=== PATIENT | male | born 1955 | race Two or more races ===

== ENCOUNTER 2024-11-18 09:00 | Day surgery (SDC) | payer MEDICARE, SELFPAY ==
[2024-11-15 14:00] VITALS: BMI 29.6
[2024-11-18] VITALS (10 sets, daily range): BP systolic 120–154; BP diastolic 76–98; PULSE 74–89; RESP 10–20; TEMP 36.2–36.8; O2SAT 93–100; BMI 28.1
[2024-11-18] MEDS: SODIUM CHLORIDE 0.9% 100 ML IV (11:20)
[2024-11-18] MEDS: ONDANSETRON INJ 2 MG/ML INJ 2 ML 4 MG IV (11:26)
[2024-11-18] MEDS: DiphenhydrAMINE INJ 50 MG/ML VIAL 25 MG IV (11:26)
[2024-11-18] MEDS: MIDAZOLAM INJ 1 MG/ML VIAL 2 ML (ASD USE ONLY) 2 MG IV (11:34)
[2024-11-18] MEDS: fentaNYL CIT INJ 50 mCg/ML AMP 2ML (ASD USE ONLY) IV (11:34)
--- NOTE | 2024-11-18 11:45 | SUR.PHASEII ---
1145 patient arrived to recovery, report received from Cyndi AVILES
--- NOTE | 2024-11-18 12:30 | SUR.PHASEII ---
1230 Patient meets discharge criteria from recovery, awake and alert, breathing unlabored, vital signs stable, denies pain, drinking water; denies nausea, patient able to dress himself into his clothing, discharge instructions given to patient and patients , signed discharge instructions. Patient given all his belongings prior to discharge, transported via wheelchair and left in a private vehicle.
== END 2024-11-18 12:30 | disposition home or self-care (01) ==
PROVIDERS: PCP Internal Medicine; Referring Provider Specialist; Visit Provider Specialist
PROC: 0DBE8ZX Excision of Large Intestine, Via Natural or Artificial Opening Endoscopic, Diagnostic (ICD-10-PCS; CPT 45380; principal; 2024-11-18 09:45)
DX: Z12.11 Encounter for screening for malignant neoplasm of colon (principal); K64.9 Unspecified hemorrhoids; K57.30 Diverticulosis of large intestine without perforation or abscess without bleeding; D12.5 Benign neoplasm of sigmoid colon
CPT/HCPCS: 45385; 45380; J1200; J2250; J2405; J3010; J7050

== ENCOUNTER → 2024-11-19 | Outpatient (CLI) | payer MEDICARE, SELFPAY ==
[2024-11-19 12:52] LABS: Basophils # (Auto) 0.1 Thou/mm3 (0.0-0.2); Basophils % (Auto) 1 % (0-2.5); Eosinophils # (Auto) 0.5 Thou/mm3 (0.0-0.5); Eosinophils % (Auto) 6 % (0-10); Hemoglobin 15.1 g/dL (13.5-16.0); Immature Granulocytes % (Auto) 0 % (0-0); Immature Granulocytes Auto 0.03 Thou/mm3 (0.00-0.00); Lymphocytes # (Auto) 2.1 Thou/mm3 (1.0-4.8); Lymphocytes % (Auto) 23 % (10-50); Mean Corpuscular HGB Conc 34.3 g/dl (31.0-37.0); Mean Corpuscular Hemoglobin 27.5 pg (25.0-35.0); Mean Corpuscular Volume 80 fL (80-100); Monocytes # (Auto) 0.8 Thou/mm3 (0.0-0.8); Monocytes % (Auto) 9 % (0-12); Neutrophils # (Auto) 5.5 Thou/mm3 (1.8-7.7); Neutrophils % (Auto) 61 % (37-80); Nucleated Red Blood Cell % 0 /100 WBC (0); Platelet Count 236 Thou/mm3 (140-440); RDW Standard Deviation 38.1 fL (35.1-43.9); White Blood Count 9.1 Thou/mm3 (3.8-10.6)
[2024-11-19 13:06] LABS: Glucose Estimated Average 123 mg/dL (80-131); Hemoglobin A1C 5.9 % Hgb (4.8-6.0)
[2024-11-19 13:17] LABS: Alanine Aminotransferase 18 U/L (10-49); Albumin, Serum 4.6 gm/dL (3.4-4.8); Albumin/Globulin Ratio 1.8 (1.2-2.2); Alkaline Phosphatase 100 U/L (46-116); Anion Gap 10 (7-16); Aspartate Amino Transferase 15 U/L (0-34); BUN/Creatinine Ratio 19 Ratio (12-20); Bilirubin,Total 0.8 mg/dL (0.3-1.2); Blood Urea Nitrogen 23 mg/dL (9-23); Calcium 9.1 mg/dL (8.3-10.6); Calcium (Corrected) 9.1 mg/dL (8.5-10.1); Carbon Dioxide 25.2 mMol/L (20.0-31.0); Cardiac Risk Estimate 3.7 RATIO (4.0-6.7); Chloride 106 mMol/L (98-107); Cholesterol 170 mg/dL (132-200); Creatinine (Component) 1.2 mg/dL (0.6-1.3); Globulin 2.6 gm/dL (2.3-3.5); Glucose 101 mg/dL (74-106); HDL Cholesterol 46 mg/dL (40-60); LDL Cholesterol,Calculated 103 mg/dL (0-130); Osmolality,Calculated 284 (275-295); Potassium 4.4 mMol/L (3.4-5.1); Sodium 141 mMol/L (136-145); Total Protein 7.2 gm/dL (5.7-8.2); Triglycerides 103 mg/dL (30-150); eGFR > 60 See Note
[2024-11-19 14:31] LABS: PSA Medicare Annual Scrn 3.08 ng/mL (0-4.00)
== END | disposition home or self-care (01) ==
PROVIDERS: PCP Internal Medicine; Referring Provider Internal Medicine; Visit Provider Internal Medicine
DX: Z00.00 Encounter for general adult medical examination without abnormal findings (principal); I10 Essential (primary) hypertension; E78.2 Mixed hyperlipidemia
CPT/HCPCS: 36415; 80053; 80061; 83036; 84153; 85025; G0103

== ENCOUNTER → 2025-07-16 | Outpatient (CLI) | payer MEDICARE, SELFPAY ==
--- NOTE | 2025-07-16 10:36 | XR_ITS ---
Examination: Abdomen AP single view Technique: AP portable supine abdomen, single view Exam date and time: July 16, 2025 1036 hours INDICATIONS: Constipation 3 weeks. FINDINGS: Moderate air and stool throughout the colon. Mild small bowel ileus. No obstruction. No free air. IMPRESSION: Nonobstructive bowel gas pattern
== END | disposition home or self-care (01) ==
LOC: CDIM 10:13
PROVIDERS: PCP Internal Medicine; Referring Provider Internal Medicine; Visit Provider Internal Medicine
DX: K59.00 Constipation, unspecified (principal)
CPT/HCPCS: 74018

== ENCOUNTER → 2025-08-20 | Outpatient (CLI) | payer MEDICARE, SELFPAY ==
--- NOTE | 2025-08-20 09:15 | EKG_ITS ---
[facility] Test Date: 2025-08-20 Pat Name: ERICA STOREY Department: Room: - Gender: Male [employer]: DERIC : 1955 Requested By: Sav Randolph Order Number: [id number] Reading MD: Sav Randolph Measurements Intervals [place] Rate: 71 P: 31 SD: 176 QRS: -20 QRSD: 82 T: 17 QT: 399 QTc: 435 Interpretive Statements SINUS RHYTHM LOW QRS VOLTAGE IN PRECORDIAL LEADS [QRS DEFLECTION < 1.0 mV IN CHEST LEADS] MINIMAL VOLTAGE CRITERIA FOR LVH, CONSIDER NORMAL VARIANT [MEETS CRITERIA IN ONE OF: R(aVL), S(V1), R(V5), R(V5/V6)+S(V1)] Compared to ECG 09/06/2022 11:42:59 Low QRS voltage now present /store/S0/[id number]/[id number].pdf
== END | disposition home or self-care (01) ==
PROVIDERS: PCP Internal Medicine; Referring Provider Student in an Organized Health Care Education/Training Program; Visit Provider Student in an Organized Health Care Education/Training Program
DX: Z01.810 Encounter for preprocedural cardiovascular examination (principal)
CPT/HCPCS: 93005